=== PATIENT | male | born 1980 | race Caucasian/White ===

== ENCOUNTER 2018-10-19 22:57 | Emergency (ER) | payer OTHER, MEDICAID ==
[~2018-10-19] VITALS: Ht 182.9 cm; Wt 51.7 kg
[2018-10-19 23:04] VITALS: BP_SYST 127
[2018-10-20] MEDS ORDERED: KETOROLAC TROMETHAMINE 30 MG VIAL IM ONE (07:15)
[2018-10-20] MEDS ORDERED: PENICILLIN V POTASSIUM 250 MG TABLET PO ONE (07:15)
[2018-10-20 08:05] VITALS: BP_SYST 124
== END 2018-10-20 08:05 | disposition home or self-care (01) ==
LOC: SED 22:57
DX: K08.89 Other specified disorders of teeth and supporting structures (principal)
CPT/HCPCS: 82962; 96372; 99283; J1885